=== PATIENT | female | born 1970 | race Two or more races ===

== ENCOUNTER → 2017-11-19 07:48 | Outpatient (CLI) | payer OTHER ==
[~2017-11-19 07:48] MED LIST: IBUPROFEN600 MG PO
== END | disposition home or self-care (01) ==
LOC: EKG 07:48
DX: I10 Essential (primary) hypertension (principal)

== ENCOUNTER 2017-11-19 08:23 | Outpatient (CLI) | payer OTHER | END 2017-11-19 08:25 | disposition home or self-care (01) | LOC: SONOGRAMA 08:23 | DX: R10.9 Unspecified abdominal pain (principal); J44.9 Chronic obstructive pulmonary disease, unspecified ==